=== PATIENT | female | born 2000 | race Caucasian/White ===

== ENCOUNTER 2024-11-03 09:04 | Emergency (ER) | payer OTHER ==
[~2024-11-03] VITALS: Ht 165.1 cm; Wt 68.7 kg
[2024-11-03 09:29] LABS: BASOPHILS 0.6 % (0.1-1.2); EOSINOPHILS 5.9 % (0.7-5.8); LYMPHOCYTES 45.4 % (19.3-51.7); MCH 30.1 PG (25.6-32.2); MCHC 34.0 g/dL (32.2-35.5); MCV 88.6 fL (79.4-94.8); MONOCYTES 8.2 % (4.7-12.5); NEUTROPHILS 39.7 % (34.0-71.1); RBC 4.75 M/uL (3.93-5.22)
[2024-11-03 09:42] LABS: ABO A
[2024-11-03 09:43] LABS: RH POSITIVE
[2024-11-03 09:46] LABS: ALT (SGPT) 44.0 U/L (14-59); AST (SGOT) 18.0 U/L (15-37); GLOMERULAR FILTRATION RATE,EST 76.0 mL/min (>60); PROTEIN, TOTAL 7.9 g/dL (6.4-8.2); UREA NITROGEN 11.0 mg/dL (7-18)
[2024-11-03 12:18] VITALS: BP 129/82
[2024-11-07 22:48] LABS: PROGESTERONE,HPLC-MS/MS 0.92 ng/mL (())
== END 2024-11-03 12:16 | disposition home or self-care (01) ==
LOC: ED 09:04
PROVIDERS: Emergency Medicine
DX: O36.80X0 Pregnancy with inconclusive fetal viability, not applicable or unspecified (principal); Z3A.00 Weeks of gestation of pregnancy not specified; Z88.0 Allergy status to penicillin
CPT/HCPCS: 36415; 76801; 76817; 80053; 84144; 84702; 85025; 86850; 86900; 86901; 99284-25

== ENCOUNTER 2024-11-05 10:47 | Emergency (ER) | payer OTHER ==
[~2024-11-05] VITALS: Ht 165.1 cm; Wt 68.7 kg
--- OUTSIDE RECORDS SUMMARY | 2024-11-05 10:54 | XMS ---
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 EFranky VISIT COUNT (12 MO.) [address] [place] [address] TOTAL 2 NOTE: Visits indicate total known visits. ED/UCC VISIT TRACKING (12 MO.) 11/05/2024 10:47 [facility] [place] TYPE: Emergency COMPLAINT: - ABNORMAL LAB 11/03/2024 09:05 [facility] [place] TYPE: Emergency COMPLAINT: - VAGINAL BLEEDING INPATIENT VISIT TRACKING (12 MO.) No inpatient visits to display in this time frame [id number]
[2024-11-05] MEDS ORDERED: HYDROCODON-ACE1 EA10 PO (13:43)
[2024-11-05] MEDS ORDERED: ONDANSETRON ODT4 MG PO (13:43)
[2024-11-05 14:13] VITALS: BP 110/79
[2024-11-15] MEDS ORDERED: LORAZEPAM1 MG PO (06:43)
== END 2024-11-05 14:15 | disposition home or self-care (01) ==
LOC: ED 10:47
DX: O00.109 Unspecified tubal pregnancy without intrauterine pregnancy (principal); Z88.0 Allergy status to penicillin; Z97.5 Presence of (intrauterine) contraceptive device
CPT/HCPCS: 36415; 84702; 96372; 99284; J9260

== ENCOUNTER 2024-11-15 06:25 | Day surgery (SDC) | payer OTHER ==
[~2024-11-15] VITALS: Ht 165.1 cm; Wt 66.4 kg
[~2024-11-15 06:25] MED LIST: HYDROCODON-ACE1 EA10 PO; LACTATED RINGER'S 1,000 ML IV SCH; ONDANSETRON ODT4 MG PO
[2024-11-15 06:41] VITALS: BP 154/94
[2024-11-15] MEDS ORDERED: LORAZEPAM1 MG PO ×2 (06:43)
[2024-11-15] MEDS ORDERED: IBLOOD GLUCOSE TEST STRIP 1 EA TEST VI PRN ×2 (07:00→10:00)
[2024-11-15] MEDS ORDERED: LIDOCAINE HCL 1% 5 ML SDV INJ ONE (07:00)
[2024-11-15 07:01] LABS: MCH 29.9 PG (25.6-32.2); MCHC 33.8 g/dL (32.2-35.5); MCV 88.3 fL (79.4-94.8); RBC 4.62 M/uL (3.93-5.22)
[2024-11-15] MEDS ORDERED: MIDAZOLAM HCL 2 MG/2 ML VIAL IV ONE (07:15)
--- NOTE | 2024-11-15 07:24 | NUR ---
0710 PT REQUESTING SOMETHING TO HELP HER ANXIETY. CALLED AND SPOKE WITH SARAH CLOTH DYEING RANGE TENDER. VERBAL ORDER RECEIVED FOR 2MG VERSED IV ONCE NOW.
--- NOTE | 2024-11-15 07:33 | NUR ---
0729 versed given per emar. pt friend and boyfriend in room. pt has call light within reach. pt has no questions at this time.
[2024-11-15] MEDS ORDERED: KETAMINE in NS 50 MG/5 ML SYR ONE (07:49)
[2024-11-15] MEDS ORDERED: fentaNYL citrate 100 MCG/2 ML VIAL ONE (07:49)
[2024-11-15] MEDS ORDERED: DEXAMETHASONE SOD PHOS 4 MG/ML VIAL ONE (07:50)
[2024-11-15] MEDS ORDERED: ACETAMINOPHEN 1,000 MG/100 ML VIAL ONE (07:50)
[2024-11-15] MEDS ORDERED: MAGNESIUM SULFATE 1 GM/2 ML VIAL ONE (07:50)
[2024-11-15] MEDS ORDERED: KETOROLAC TROMETHAMINE 30 MG/ML VIAL ONE (07:50)
[2024-11-15] MEDS ORDERED: SODIUM CHLORIDE 0.9% 40 ML IV ONE (07:50)
[2024-11-15] MEDS ORDERED: ROCURONIUM BROMIDE 50 MG/5 ML SYR ONE (07:50)
[2024-11-15] MEDS ORDERED: LIDOCAINE HCL 2% 5 ML SDV ONE (07:50)
[2024-11-15 07:55] LABS: ABO A; ANTIBODY SCREEN NEGATIVE; RH POSITIVE
[2024-11-15] MEDS ORDERED: FAMOTIDINE 20 MG/ 2 ML VIAL ONE (08:53)
[2024-11-15] MEDS ORDERED: SUGAMMADEX SODIUM 200 MG/2 ML ML ONE (09:44)
[2024-11-15] MEDS ORDERED: fentaNYL citrate 50 MCG/ML SDV IV PRN (10:00)
[2024-11-15] MEDS ORDERED: NALOXONE HCL 0.4 MG SYR IV PRN ×2 (10:00→10:15)
[2024-11-15] MEDS ORDERED: MAGNESIUM HYDROXIDE/AL HYDROX 30 ML CUP PO PRN (10:15)
[2024-11-15] MEDS ORDERED: SIMETHICONE 80 MG CHEW PO PRN (10:15)
[2024-11-15] MEDS ORDERED: PROCHLORPERAZINE EDISYLATE 10 MG/2 ML VIAL IV PRN (10:15)
[2024-11-15] MEDS ORDERED: OXYCODONE/APAP 5/325 TAB PO PRN (10:15)
[2024-11-15] MEDS ORDERED: FAMOTIDINE 20 MG/ 2 ML VIAL IV PRN (10:15)
[2024-11-15] MEDS ORDERED: MORPHINE SULFATE 10 MG/ML VIAL IV PRN (10:15)
--- NOTE | 2024-11-15 10:36 | NUR ---
11/15/24 1036 Trini Montgomery 1006 PT TO PACU SLEEPING. OPENED HER EYES BRIEFLY AND REPORT BEING NAUSOUS. DROPERIDOL GIVEN. SHE ALSO REPORTS HAVING PAIN 6-7/10 FENTANYL GIVEN. PT ASLEEP OFF AND ON. PT MAINTAINS SATS ABOVE 95% ON ROOM AIR.
[2024-11-15 11:23] VITALS: BP 104/70
--- NOTE | 2024-11-15 11:29 | NUR ---
1115 PT ARRIVED TO DAY SURGERY FROM PACU VIA Format DynamicsACHER. PT REPORTING 7/10 PAIN, BUT PT KEEPS EYES CLOSED FOR MOST OF THE CONVERSATION. PT FALLS BACK ASLEEP AFTER QUESTIONS. PT HAS BOYFRIEND AND FRIEND IN ROOM AT BEDSIDE. PT REPORTS NO NAUSEA AT THIS TIME. PT HAS WATER AND CRACKERS AT BEDSIDE. PT HAS CALL LIGHT WITHIN REACH. PT HAS PERSONAL ITEMS WITHIN REACH. PLAN MADE WITH PT ABOUT EATING SOME CRACKERS BEFORE GETTING A PAIN PILL ON BOARD. PT VERABLIZES UNDERSTANDING.
[2024-11-15] MEDS ORDERED: SEVOFLURANE 250 ML BTL INH ONE (11:33)
[2024-11-15 12:12] VITALS: BP 101/63
--- NOTE | 2024-11-15 12:24 | NUR ---
1155 PT USED CALL LIGHT TO ALERT RN THAT PT NEEDS TO URINATE. PT ABLE TO AMBULATE TO BATHROOM WITH STEADY GAIT. PT UNABLE TO VOID AT THIS TIME, DISCUSSED WITH PT ABOUT THE FEELING OF NEEDING TO URINATE AFTER HAVING A CATHETER IN PLACE. PT STATES UNDERSTANDING, PT WILL DRINK PO FLUIDS AND TRY AGAIN LATER. PT ABLE TO AMBULATE BACK TO ROOM WITH STEADY GAIT. 1210 PT BACK IN BED, WITH CALL LIGHT WITHIN REACH AND WATER AND CRACKERS AT BEDSIDE. VITALS TAKEN. IV ASSESSED. BED LOW AND LOCKED. PT BOYFRIEND AND SISTER IN ROOM.
[2024-11-15] MEDS ORDERED: SIMETHICONE 80 MG CHEW PO SCH (13:00)
[2024-11-15 13:13] VITALS: BP 115/71
--- NOTE | 2024-11-15 13:41 | NUR ---
1305 REPORT TAKEN FROM KADEEM Solares RN. KADEEM Solares RN BLADDER SCANNED PT AT 753 AND THEN PT WAS ABLE TO AMBULATE TO BATHROOM AND VOID 850 MLS. PT BACK TO ROOM AND GETTING DRESSED. 1310 PT DRESSED IN ROOM AND IN BED. HOURLY ROUNDING DONE, VITALS TAKEN. PT REPORTS 3/10 TOLERABLE PAIN. PT HAS NO NAUSEA AT THIS TIME. PT BOYFRIEND AND SISTER IN ROOM. 1315 DISCHARGE INFORMATION GONE OVER WITH PT, SISTER AND BOYFRIEND. PRESCRIPTION. NO QUESTIONS AT THIS TIME. 1320 IV DISCONTINUED FOR DISCHARGE. WRAPPED WITH GAUZE AND COBAN. 1322 PT DISCHARGED FROM DAY SURGERY VIA WHEELCHAIR TO THE FRONT OF THE HOSPITAL TO PT'S BOYFRIEND'S CAR. PT SISTER HAS DISCHARGE INFORMATION IN HAND WITH PRESCRIPTION.
--- NOTE | 2024-11-16 04:46 | OR ---
[facility] [address] [place], [place] [address] Signed DATE OF OPERATION: 11/15/2024 SURGEON: Clint Blanca DO PREOPERATIVE DIAGNOSES: 1. Left fallopian ectopic . 2. Desires bilateral salpingectomy. 3. Desires intrauterine device removal. POSTOPERATIVE DIAGNOSES: 1. Left fallopian ectopic . 2. Desires bilateral salpingectomy. 3. Desires intrauterine device removal. 4. Hemoperitoneum. 5. Possible endometriosis of the cul-de-sac. PROCEDURES PERFORMED: 1. Bilateral salpingectomy. 2. Evacuation of hemoperitoneum. 3. Intrauterine device removal. PERSONAL FINANCIAL ADVISOR: PYTHON WEB DEVELOPER. ANESTHESIA: General. ESTIMATED BLOOD LOSS: During the procedure 5 mL with approximately 100 mL of pre-existing hemoperitoneum. SPECIMENS: Bilateral fallopian tubes with a left containing an ectopic . DRAINS: None. FINDINGS: Normal external genitalia with normal clitoris, urethral meatus, bilateral Rembrandt's, Bartholin's glands. Normal vagina and cervix. The IUD was removed without difficulty with strings for 4 cm in length. On laparoscopy, significant hemoperitoneum with Electronically Signed By: CLINT BLANCA DO (JD) 11/16/24 0446 PATIENT NAME: MEDNOZA JONAS OPERATIVE REPORT DATE OF : 00 REPORT #: [id number] PHYSICIAN: CLINT BLANCA DO (JD) PCP: JUSTEN COOPER PAC REPORT IS CONFIDENTIAL AND NOT TO BE RELEASED WITHOUT AUTHORIZATION [facility] [address] [employer], [place] [address] Signed approximately 100 mL of blood in the pelvis. Normal liver, gallbladder and stomach. Normal appendix. In the pelvis normal uterus, bilateral ovaries and right fallopian tube. The left fallopian tube was swollen and distended consistent with ectopic with bleeding from the fimbriated end. In the cul-de-sac near the right uterosacral ligament there was some puckering and white lesions possibly consistent with endometriosis. No other lesions suspicious of endometriosis within the pelvis. Excellent hemostasis at the end of the procedure. COMPLICATIONS: None. INDICATIONS: Ms. Jonas is a very pleasant 24-year-old G1, P0, who initially presented to the emergency department with vaginal bleeding and positive test. An ultrasound was performed that demonstrated a left ectopic . She was treated with methotrexate. One week later and serial quant HCGs demonstrated increase in her HCG and patient had increasing pelvic discomfort and pain. She initially requested treatment with bilateral salpingectomy, but decision was made to treat with methotrexate. She has always wanted to not become and again requests bilateral salpingectomy. This was approved by the ethics committee. Risks, benefits, and alternatives were discussed in detail with the patient. She also desires her IUD removed at the time of the procedure. The patient understands and wished to proceed with bilateral salpingectomy and IUD removal. DESCRIPTION OF PROCEDURE: The patient was taken the OR. A time-out was performed to confirm correct patient, correct procedure. General anesthesia was adequately established. The patient was prepped and draped in the dorsal lithotomy position with her feet in Yellofin stirrups. ICPs were on running and no preoperative antibiotics or heparin were indicated. A Ace catheter was inserted. A weighted speculum placed in vagina and anterior lip of the cervix was grasped with an Allis clamp and the IUD was removed without difficulty. A Hulka uterine manipulator was placed without difficulty. The surgeon's gloves were changed. Attention was turned to the abdomen. The base of the umbilicus was infiltrated with 0.25% Marcaine with epinephrine. A 5 mm stab incision was made with an 11 blade scalpel. A 5 mm trocar was placed under direct visualization without complication. Pneumoperitoneum was established easily with low opening pressures noted. Survey of the abdomen and pelvis was performed demonstrating hemoperitoneum. A 5 mm desk assistant ports were placed in the left lower and right lower quadrant under direct visualization without complication. Hemoperitoneum was evacuated. Approximately 100 mL was collected in the suction canister. The pelvis and abdomen were then irrigated to remove any additional reported remnants. Survey of the abdomen and pelvis were performed demonstrating a normal liver, gallbladder, stomach, and appendix. In the Electronically Signed By: CLINT BLANCA DO (JD) 11/16/24 0446 PATIENT NAME: MENDOZA JONAS OPERATIVE REPORT DATE OF : 00 REPORT #: [id number] PHYSICIAN: CLINT BLANCA DO (JD) PCP: JUSTEN COOPER PAC REPORT IS CONFIDENTIAL AND NOT TO BE RELEASED WITHOUT AUTHORIZATION [facility] [address] [place] [id number] Signed pelvis normal uterus, right fallopian tube, and bilateral ovaries. The left fallopian tube was distended with oozing from the fimbriated end consistent with ectopic . There was a small area of puckering with white lesions possibly consistent with stage I endometriosis near the right uterosacral ligament. The left fallopian tube was grasped at the fimbriated end, elevated and divided along the mesosalpinx using LigaSure device. This was then amputated at the cornu. The process was repeated on the right in accord with the patient's desires for bilateral salpingectomy. The tubes were then placed into an EndoCatch bag and evacuated through the umbilical incision without difficulty and sent to Pathology for further evaluation. The pelvis was then again carefully evaluated and irrigated with excellent hemostasis appreciated. The umbilical incision was then ligated using Jax-Damon device with one suture of 0 Vicryl to close any fascial defect. Trocars area removed after evacuation of pneumoperitoneum. Trocar sites were repaired using 3-0 Vicryl Rapide and subcuticular stitch with excellent hemostasis and cosmesis. The Ace catheter and a Hulka uterine manipulator removed. The patient was taken to PACU in good and stable condition. Sponge, needle, and instrument count were correct x2 at the end of the procedure. DO BENITA Lowe/MODL /[id number] Copies: ~ Electronically Signed By: CLINT BLANCA DO (JD) 11/16/24 0446 PATIENT NAME: MENDOZA JONAS OPERATIVE REPORT DATE OF : 00 REPORT #: [id number] PHYSICIAN: CLINT BLANCA ([place]) PCP: JUSTEN COOPER PAC REPORT IS CONFIDENTIAL AND NOT TO BE RELEASED WITHOUT AUTHORIZATION
--- NOTE | 2024-11-17 12:30 | PATH ---
[facility] [address] [place], [place] [address] Signed SPECIMEN(S): A FALLOPIAN TUBES, LEFT ECTOPIC SPECIMEN SOURCE: A. FALLOPIAN TUBES, LEFT ECTOPIC CLINICAL HISTORY: Status post left tubal , prophylactic for ovarian ca FINAL PATHOLOGIC DIAGNOSIS: Bilateral fallopian tubes, left ectopic , bilateral salpingectomy: - Left fallopian tube: Morphologic features consistent with tubal ectopic . See comment - Right fallopian tube: Histologically unremarkable fimbria and fallopian tube with full lumen identified. COMMENT: Section of the left fallopian tube demonstrate a dilated lumen with hemorrhage and focal area showing membrane-type tissue and rare placental villi consistent with ectopic NA MICROSCOPIC EXAMINATION: Histologic sections of all submitted blocks are examined by light microscopy. These findings, together with the gross examination, support the pathologic diagnosis. Histologic sections of all submitted blocks are examined by light microscopy. These findings, together with the gross examination, support the pathologic diagnosis. GROSS DESCRIPTION: The specimen, labeled and designated "Luli Jonas, bilateral fallopian tubes, left ectopic ," is received in formalin and consists of 2 violaceous fallopian tube with undesignated laterality. The suspected left fallopian tube measures 9.2 x 2.2 x 1.9 cm and has an attached fimbriated end. There is a possible area of perforation at the fimbriated end is there is congealed blood exuding from the fimbriated end. It is serially sectioned revealing a dilated lumen filled with congealed blood. There is no apparent villous tissue present. There are no apparent parts. The suspected right fallopian tube measures 6.2 x 1 x 0.8 cm and has an attached fimbriated end. The serosal surface is an apparent paratubal cysts. The PATIENT NAME: MENDOZA JONAS PATHOLOGY DATE OF : 00 REPORT #: [id number] PHYSICIAN: NAMRATA PATHOLOGY PCP: JUSTEN COOPER PAC REPORT IS CONFIDENTIAL AND NOT TO BE RELEASED WITHOUT AUTHORIZATION [facility] [address] [place], [place] [address] Signed specimen is serially sectioned revealing a pinpoint lumen. Diesel Retrofit Installer sections are submitted as follows: 11/16/2024: Additional sections of the left fallopian tube are submitted in cassette A5 and A6 per Dr. Landon's request. Cassette Summary: (A1) left fallopian tube, fimbriated end totally embedded (A2-A3) left fallopian tube lumen (A4) right fallopian tube, fimbriated end totally embedded AA (under the direct supervision of a pathologist) The Gross Description was prepared using a voice recognition system. The report was reviewed for accuracy; however, sound-alike word errors, addition and/or deletions may occur. If there is any question about this report, please contact Client Services. ADDITIONAL NOTES: Immunohistochemical and/or in situ hybridization studies if performed in this case included appropriate positive controls that reacted as expected. This test was developed and its performance characteristics determined by [facility]. It has not been cleared or approved by the U.S. Food and Drug Administration. The FDA has determined that such clearance or approval is not necessary. This test is used for clinical purposes. It should not be regarded as investigational or for research. [facility] is certified under the Clinical Laboratory Improvement Amendments of 1988 (CLIA) as qualified to perform high complexity clinical laboratory testing. PERFORMING LABORATORY: Technical component was performed by [facility], [address] [place] [id number] (CLIA# [id number]). Professional interpretation was performed by [facility] - [facility], [address] [place] [id number] (CLIA#: [id number]). Diagnostician: Hasrha Landon MD Pathologist Electronically Signed 11/17/2024 Copies: PATIENT NAME: MENDOZA JONAS PATHOLOGY DATE OF : 00 REPORT #: [id number] PHYSICIAN: NAMRATA SALDAÑA PCP: JUSTEN COOPER PAC REPORT IS CONFIDENTIAL AND NOT TO BE RELEASED WITHOUT AUTHORIZATION [address] [place] [address] Signed ~ PATIENT NAME: MENDOZA JONAS PATHOLOGY DATE OF : 00 REPORT #: [id number] PHYSICIAN: NAMRATA PATHOLOGY PCP: JUSTEN COOPER PAC REPORT IS CONFIDENTIAL AND NOT TO BE RELEASED WITHOUT AUTHORIZATION
== END 2024-11-15 13:22 | disposition home or self-care (01) ==
LOC: DS 06:25
PROVIDERS: ATTEND Obstetrics & Gynecology
PROC: 0UT74ZZ Resection of Bilateral Fallopian Tubes, Percutaneous Endoscopic Approach (ICD-10-PCS; 2024-11-15)
PROC: 0UPDXHZ Removal of Contraceptive Device from Uterus and Cervix, External Approach (ICD-10-PCS; 2024-11-15)
PROC: 10T24ZZ Resection of Products of Conception, Ectopic, Percutaneous Endoscopic Approach (ICD-10-PCS; principal; 2024-11-15 08:45)
DX: O00.102 Left tubal pregnancy without intrauterine pregnancy (principal); T83.31XA Breakdown (mechanical) of intrauterine contraceptive device, initial encounter; K66.1 Hemoperitoneum; Z79.899 Other long term (current) drug therapy; Z88.0 Allergy status to penicillin
CPT/HCPCS: 00840; 36415; 84702; 85027; 86850; 86900; 86901; J0131; J1100; J1790; J1885; J2003; J2250; J2405; J2704; J3010; J3475; J3490; J7121

== ENCOUNTER 2024-11-21 19:19 | Emergency (ER) | payer OTHER ==
[~2024-11-21] VITALS: Ht 165.1 cm; Wt 66.4 kg
[~2024-11-21 19:19] MED LIST changes: -LACTATED RINGER'S 1,000 ML IV SCH; +LORAZEPAM1 MG PO
--- OUTSIDE RECORDS SUMMARY | 2024-11-21 19:26 | XMS ---
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 EFranky VISIT COUNT (12 MO.) [address] [place] [address] TOTAL 3 NOTE: Visits indicate total known visits. ED/UCC VISIT TRACKING (12 MO.) 11/21/2024 19:20 [facility] [place] TYPE: Emergency COMPLAINT: - POST OP FEVER 11/05/2024 10:47 [facility] [place] TYPE: Emergency COMPLAINT: - ABNORMAL LAB DIAGNOSES: - Allergy status to penicillin - Pelvic and perineal pain - Presence of (intrauterine) contraceptive device - Unspecified tubal without intrauterine 11/03/2024 09:05 [facility] [place] TYPE: Emergency COMPLAINT: - VAGINAL BLEEDING DIAGNOSES: - Abnormal uterine and vaginal bleeding, unspecified - Allergy status to penicillin - Encounter for test, result positive - with inconclusive viability, not applicable or unspecified - Weeks of gestation of not specified INPATIENT VISIT TRACKING (12 MO.) No inpatient visits to display in this time frame [email or web address]
[2024-11-21] MEDS ORDERED: LACTATED RINGER'S 1,000 ML IV ONE (20:00)
[2024-11-21] MEDS ORDERED: KETOROLAC TROMETHAMINE 30 MG/ML VIAL IV ONE (20:00)
[2024-11-21 20:07] LABS: BASOPHILS 0.3 % (0.1-1.2); EOSINOPHILS 1.4 % (0.7-5.8); LYMPHOCYTES 15.1 % (19.3-51.7); MCH 30.2 PG (25.6-32.2); MCHC 33.9 g/dL (32.2-35.5); MCV 89.1 fL (79.4-94.8); MONOCYTES 9.0 % (4.7-12.5); NEUTROPHILS 73.8 % (34.0-71.1); RBC 4.87 M/uL (3.93-5.22)
[2024-11-21 20:08] LABS: BLOOD/HGB, URINE MODERATE (Negative); KETONE, URINE NEGATIVE (Negative); LEUK ESTERASE, URINE NEGATIVE (negative); NITRITE, URINE NEGATIVE (negative)
[2024-11-21 20:14] LABS: BACTERIA, URINE RARE /hpf (negative); CASTS, URINE NONE SEEN \\lpf; CRYSTALS, URINE NONE SEEN (0-1+); EPITHELIAL CELLS, URINE SQUAMOUS 1+ /lpf (0-1+); REFLEX CULTURE, URINE No (No)
[2024-11-21 20:23] LABS: ALT (SGPT) 28.0 U/L (14-59); AST (SGOT) 15.0 U/L (15-37); GLOMERULAR FILTRATION RATE,EST 110.0 mL/min (>60); PROTEIN, TOTAL 8.6 g/dL (6.4-8.2); UREA NITROGEN 6.0 mg/dL (7-18)
[2024-11-21 20:25] LABS: AMPHETAMINES, URINE NEGATIVE (NEGATIVE); BARBITURATES, URINE NEGATIVE (NEGATIVE); BENZODIAZEPINE, URINE NEGATIVE (NEGATIVE); CANNABINOID, URINE NEGATIVE (NEGATIVE); COCAINE, URINE NEGATIVE (NEGATIVE); ECSTASY, URINE NEGATIVE (NEGATIVE); FENTANYL, URINE NEGATIVE (NEGATIVE); METHADONE, URINE NEGATIVE (NEGATIVE); OPIATES, URINE POSITIVE (NEGATIVE); OXYCODONE, URINE NEGATIVE (NEGATIVE); PHENCYCLIDINE, URINE NEGATIVE (NEGATIVE)
[2024-11-21 20:33] LABS: LACTIC ACID, BLOOD 1.4 mmol/L (0.4-2.0)
[2024-11-21] MEDS ORDERED: MORPHINE SULFATE 4 MG/ML VIAL IV ONE (21:00)
[2024-11-21] MEDS ORDERED: KLOR-CON M2020 MEQ PO (21:39)
[2024-11-21] MEDS ORDERED: POTASSIUM CHLORIDE 10 MEQ TABCR PO ONE (21:45)
[2024-11-21 21:49] VITALS: BP 112/80
== END 2024-11-21 21:48 | disposition home or self-care (01) ==
LOC: ED 19:19
PROVIDERS: Internal Medicine
DX: G89.18 Other acute postprocedural pain (principal); Z88.0 Allergy status to penicillin
CPT/HCPCS: 36415; 74177; 80053; 80307; 81001; 83605; 83735; 84702; 85025; 96365; 96375; 99284-25; A9270; J0696; J1885; J2270; J2405; J7121; Q9967